=== PATIENT | male | born 1965 | race Caucasian/White ===

== ENCOUNTER → 2017-01-08 | Outpatient (CLI) | payer BC ==
--- NOTE | 2017-01-10 11:06 | SLEEPHOME ---
DATE OF PROCEDURE: 01/08/2017 REFERRING PROVIDER: Anastasia Romeo NP INTERPRETATION: Diagnostic home sleep testing was performed due to concern for the obstructive sleep apnea syndrome. For testing, a NOX-T3 respiratory monitoring device was used. Continuous record was made of pulse, oxygen saturation, air flow, chest and abdominal strain. 7 hours and 59 minutes of data were reviewed. Of these, 6 hours and 2 minutes marked as time in bed. During the interval marked time in bed, there were 96 respiratory events identified of 10 seconds in duration or greater for an apnea hypopnea index of 15.9. The events were primarily obstructive. Baseline heart rate was 70 beats per minute. Pulse rate ranged 51 to 97. Baseline saturation was 95%. Lowest oxygen saturation recorded was 80%. Testing was performed in both the supine and nonsupine positions. IMPRESSION: Abnormal home sleep testing with repetitive respiratory events and oxygen desaturations to 80% is consistent with the obstructive sleep apnea syndrome. RECOMMENDATION: The patient should be encouraged to undergo formal sleep evaluation and in laboratory pressure titration.
== END ==
LOC: M SLEEP HO 07:38
PROVIDERS: ATTEND Nurse Practitioner Adult Health
DX: G47.9 Sleep disorder, unspecified (principal)

== ENCOUNTER → 2017-04-29 | Outpatient (CLI) | payer BC ==
--- NOTE | 2017-05-06 07:58 | SLEEPCENT ---
DATE OF STUDY: 04/29/2017 ORDERED BY: Fernando Kemp DO Nocturnal polysomnography was performed for the titration of pressure therapy in this patient with a diagnosis of obstructive sleep apnea syndrome confirmed by home sleep testing revealing a respiratory event index of 15.9. For testing, the patient was fit with a ResMed Quattro full face mask of medium size. 5 cm of water pressure were applied to the circuit and the lights were extinguished. 6 hours and 3 minutes of data were reviewed. There were 236 minutes of sleep identified. Sleep latency was normal at 12 minutes. Rapid eye movement (REM) latency was delayed at 127 minutes. Sleep architecture did improve, though some fragmentation persisted around 1-2 a.m. Overall sleep efficiency was 65% and there were 2 REM periods noted. The electrocardiogram showed what appeared to be a sinus rhythm with an average heart rate of 70 beats per minute. EEG showed reasonably normal wave forms for awake and sleep. Respiratory events were fully palliated with CPAP at a pressure of +7. CPAP tolerance was fair to good. Significant limb activity was seen throughout the test. Limb movement arousal index was 11.7. IMPRESSION: 1. Obstructive sleep apnea syndrome (G47.33). 2. Periodic limb movement disorder (G47.61), limb movement arousal index 11.7. RECOMMENDATION: Nightly use of pressure therapy at 7 cm of water is sufficient to address the patient's respiratory events. Interventions to reduce the frequency of arousals from limb activity may also be necessary, pending clinical response to CPAP.
== END ==
LOC: M SLEEP 19:30
PROVIDERS: ATTEND Internal Medicine Pulmonary Disease
DX: G47.33 Obstructive sleep apnea (adult) (pediatric) (principal); G47.61 Periodic limb movement disorder

== ENCOUNTER 2017-09-25 12:47 | Outpatient (RCR) | payer BC | END 2017-10-04 | LOC: M CR 12:47 | DX: Z51.89 Encounter for other specified aftercare (principal); Z95.4 Presence of other heart-valve replacement | CPT/HCPCS: 93798 ==

== ENCOUNTER 2017-10-06 12:52 | Outpatient (RCR) | payer BC | END 2017-11-03 | LOC: M CR 12:52 | DX: Z51.89 Encounter for other specified aftercare (principal); Z95.2 Presence of prosthetic heart valve; I34.0 Nonrheumatic mitral (valve) insufficiency; I35.0 Nonrheumatic aortic (valve) stenosis | CPT/HCPCS: 93798 ==

== ENCOUNTER → 2018-06-19 | Outpatient (CLI) | payer BC ==
[~2018-06-19] MED LIST: ASPI81CH32 PO; ATOR40TA75 PO; FOLI1TAB5 PO; LASI20TA PO; LEVO100T5 PO; LISI10TA4 PO; LOPR1TAB6 PO
--- NOTE | 2018-06-19 11:49 | REP ---
TRIPLE PHASE BONE SCAN OF ANKLES AND FEET: Following the intravenous administration of 22 mCi of technetium 99m MDP the patient's ankles and feet are imaged in the flow phase in the anterior and posterior projections. There is increased blood flow to the region of the left ankle and foot. Immediate blood pool and 2 hour delayed images are performed of the ankles and feet in multiple projections. There is increased blood pooling in the region of the left medial malleolus. There is intense increased uptake at this location on the delayed images. This could indicate osteomyelitis at this location. Recommend correlation with plain films. On the delayed images, there is also mild increased uptake in the very superior posterior aspect of the calcaneus, in the region of the middle cuneiform bone/base of fourth metatarsal and in the left first distal phalanx. These findings are nonspecific and again correlation with plain films is recommended. Electronically Signed by Bayron Kemp MD 06/19/2018 12:22 P
== END ==
LOC: M RAD 08:15
PROVIDERS: ATTEND Podiatrist
DX: M25.572 Pain in left ankle and joints of left foot (principal); S82.55XA Nondisplaced fracture of medial malleolus of left tibia, initial encounter for closed fracture; S82.92XA Unspecified fracture of left lower leg, initial encounter for closed fracture; M84.362A Stress fracture, left tibia, initial encounter for fracture; Y92.89 Other specified places as the place of occurrence of the external cause; Y93.9 Activity, unspecified
CPT/HCPCS: 78315; A9503

== ENCOUNTER → 2018-07-15 | Outpatient (CLI) | payer BC ==
[~2018-07-15] MED LIST changes: +FOLI1TAB11 PO; -FOLI1TAB5 PO; -LASI20TA PO; +LASI20TA3 PO
--- NOTE | 2018-07-16 06:40 | REP ---
Clinical: Left ankle pain and swelling. Technique: Axial noncontrast images of the left ankle/foot with coronal and sagittal re-formations. Findings: Mild generalized age-related degenerative changes are identified through the foot and ankle including scattered subchondral sclerosis, mild joint space narrowing and minimal marginal spurring. Findings are most pronounced involving the first metatarsophalangeal and interphalangeal joint as well as multiple interphalangeal joints and the third and fourth tarsometatarsal joints. Coronal re-formations best demonstrate mild/moderate medial soft tissue swelling with very subtle underlying periosteal reaction at the medial malleolus. There is no evidence for acute fracture or dislocation and the ankle joints including tibial plafond and talar dome are intact and normal. Impression: 1. Mild generalized age-related degenerative changes of the ankle and foot. 2. Mild swelling along the medial malleolus with very minimal periosteal reaction, but no evidence for acute or healed fracture, dislocation or traumatic cortical thickening. Findings may represent tendinopathy related to subtle subacute tendinous/soft tissue injury. Electronically Signed by Kian Saenz MD 07/16/2018 06:32 A
== END ==
LOC: M RAD 07:54
PROVIDERS: ATTEND Podiatrist
DX: M19.072 Primary osteoarthritis, left ankle and foot (principal); M25.572 Pain in left ankle and joints of left foot

== ENCOUNTER → 2022-10-03 | Outpatient (CLI) | payer BC, OTHER ==
[~2022-10-03] MED LIST changes: -ASPI81CH32 PO; +ASPI81CH33 PO; +LISI10TA22 PO; -LISI10TA4 PO
== END ==
LOC: M WUC 15:23
PROVIDERS: ATTEND Internal Medicine Rheumatology
DX: L40.50 Arthropathic psoriasis, unspecified (principal); M46.90 Unspecified inflammatory spondylopathy, site unspecified

== ENCOUNTER → 2025-02-25 | Outpatient (REF) | payer OTHER | LOC: M SFHCRHEU 18:39 | PROVIDERS: ATTEND Internal Medicine | DX: Z53.9 Procedure and treatment not carried out, unspecified reason (principal); E55.9 Vitamin D deficiency, unspecified ==